=== PATIENT | male | born 1965 | race Caucasian/White ===

== ENCOUNTER 2018-05-17 09:33 | Emergency (ER) | payer OTHER ==
[~2018-05-17 09:33] MED LIST: AMBIEN10 M1 PO; OLANZAPINE20 M1 PO; ZOLPIDEM TARTRA10 M1 PO; ZYPREXA20 M1 PO
--- NOTE | 2018-05-17 09:41 | ED SKIN/ALLERGY COMPLAINT ---
History of Present Illness General Chief Complaint: Allergy Symptoms Stated Complaint: CP Source: patient Exam Limitations: no limitations Vital Signs & Intake/Output Vital Signs & Intake/Output Vital Signs Date Time Temp Pulse Resp B/P B/P Pulse O2 O2 Flow FiO2 Mean Ox Delivery Rate 05/17 1129 98.1 66 18 121/76 99 Nasal 2.0L Cannula 05/17 1025 97.1 64 18 128/70 100 Nasal 2.0L Cannula 05/17 0942 95 Room Air 05/17 0941 65 16 121/74 95 Room Air Allergies Coded Allergies: No Known Allergies (05/17/18) Reconcile Medications Hydroxyzine Hydrochloride (Atarax) 50 MG TAB 1 TAB PO BID ALLERGY Olanzapine (Zyprexa) 20 MG TABLET 1 TAB PO QPM insomnia Prednisone 10 MG TABLET 1 DOSE PO DAILY ALLERGY TAKE 5 TABS DAY 1, 4 TABS DAY 2, 3 TABS DAY 3, 2 TABS DAY 4, 1 TAB DAY 5 Zolpidem Tartrate (Ambien) 10 MG TABLET 1 TAB PO QPMP insomnia Triage Nurses Notes Reviewed? yes Onset: Gradual Duration: hour(s): Timing: single episode today Severity: moderate Location: generalized HPI: 53-year-old male presents emergency department complaining of shortness of breath following bee sting 1 hour prior to arrival. Patient also reports rash to extremities and torso gradually worsening since bee sting. Patient was stung by a bee on right arm while working outside. He has never been stung by a bee before, no history of any allergic reactions in the past, no history of anaphylaxis in the past. Patient denies chest pain, abdominal pain. (Marry Rodriguez) Past History Travel History Traveled to [place] past 21 day No Medical History Any Pertinent Medical History? 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 No (Marry Rodriguez) Review of Systems Review of Systems Constitutional: Reports: no symptoms. EENTM: Reports: no symptoms. Respiratory: Reports: see HPI. Cardiovascular: Reports: no symptoms. GI: Reports: no symptoms. Genitourinary: Reports: no symptoms. Musculoskeletal: Reports: no symptoms. Skin: Reports: see HPI. Neurological/Psychological: Reports: no symptoms. Hematologic/Endocrine: Reports: no symptoms. Immunologic/Allergic: Reports: see HPI. All Other Systems: Reviewed and Negative (Marry Rodriguez) Physical Exam Physical Exam General Appearance: well developed/nourished, no apparent distress, alert, awake Head: atraumatic, normal appearance Eyes: Bilateral: normal appearance. Ears, Nose, Throat: normal pharynx, hearing grossly normal, no angioedema Neck: normal inspection, supple, full range of motion Respiratory: normal breath sounds, no respiratory distress, lungs clear Cardiovascular: regular rate/rhythm Back: normal inspection, normal range of motion Extremities: normal inspection, normal range of motion Neurologic/Psych: awake, alert, oriented x 3 Skin: erythematous maculopapular rash to bilateral upper and lower extremities, torso (Marry Rodriguez) Progress Differential Diagnosis: abscess/cellulitis, allergic reaction, anaphylaxis, angioedema, contact dermatitis, drug reaction, urticaria Plan of Care: Orders Procedure Date/time Status TROPONIN LEVEL 05/17 939 Complete COMPREHENSIVE METABOLIC PANEL 05/17 939 Complete CBC WITHOUT DIFFERENTIAL 05/17 939 Complete EKG 05/17 933 Active Laboratory Tests 05/17/18 1022: Anion Gap 12, Estimated GFR > 60, BUN/Creatinine Ratio 21.4, Glucose 121 H, Calcium 9.2, Total Bilirubin 0.9, AST 22, ALT 27, Alkaline Phosphatase 48, Troponin I < 0.01, Total Protein 6.3, Albumin 3.8, Globulin 2.5, Albumin/ Globulin Ratio 1.5, CBC w Diff NO MAN DIFF REQ, RBC 4.57 L, MCV 91.8, MCH 31.6 H, MCHC 34.5, RDW 13.5, MPV 9.0, Gran % 65.1, Lymphocytes % 31.4, Monocytes % 2.5, Eosinophils % 0.6, Basophils % 0.4, Absolute Granulocytes 2.6, Absolute Lymphocytes 1.3, Absolute Monocytes 0.1, Absolute Eosinophils 0, Absolute Basophils 0 Patient medicated with IV Solu-Medrol, Benadryl, Pepcid. Upon reevaluation patient's rash is improving, patient states his dyspnea has resolved. The patient's labs are stable, abnormalities. patient feels ready to go home at this time. patient to begin prednisone taper and atarax. Patient in no acute distress, vital signs are stable. The patient agrees with the plan of care. Dr. Orourke agrees with the plan of care. Initial ED EKG: sinus rhythm @69bpm, nonspecific ST changes (Marry Rodriguez) Departure Departure Disposition: HOME OR SELF CARE Condition: Stable Clinical Impression Primary Impression: Allergic reaction Qualifiers: Encounter type: initial encounter Qualified Code: T78.40XA - Allergy, unspecified, initial encounter Secondary Impressions: Dyspnea Qualifiers: Dyspnea type: unspecified Qualified Code: R06.00 - Dyspnea, unspecified Rash Referrals: Miya King APRN (PCP/Family) Additional Instructions: Take medications as prescribed. Follow up with your primary care doctor. Return with worsening symptoms or concerns. Please note that there might be incidental findings in your evaluation that are unrelated to the current emergency department visit. Please notify your primary care doctor about this emergency department visit in order to obtain and review all of the testing performed so that these incidental findings can be monitored as needed. If you had an x-ray performed, please understand that some fractures may not be seen on the initial set of x-rays. If your symptoms persist you might need a repeat set of x-rays to check for such a fracture. If you had a laceration evaluated, please understand that foreign bodies such as glass or wood may not be visible to the naked eye or on plain x-rays. If the wound becomes red, swollen, increasingly more painful or if there is any drainage from the wound, please have it reevaluated by a physician for the possibility of a retained foreign body. If you're unable to follow up as outlined in the discharge instructions please return to the emergency department. Thank you for choosing the [facility] Emergency Department for your care. It was a pleasure to serve you today. Departure Forms: Customer Survey General Discharge Information Prescriptions: Current Visit Scripts Prednisone 1 DOSE PO DAILY #15 TAB TAKE 5 TABS DAY 1, 4 TABS DAY 2, 3 TABS DAY 3, 2 TABS DAY 4, 1 TAB DAY 5 Hydroxyzine Hydrochloride (Atarax) 1 TAB PO BID #15 TAB (Marry Rodriguez) PA/EMBRYOLOGY PROFESSOR Co-Sign Statement Statement: ED Attending supervision documentation- I saw and evaluated the patient. I have also reviewed all the pertinent lab results and diagnostic results. I agree with the findings and the plan of care as documented in the PA's/EMBRYOLOGY PROFESSOR's documentation. x I have reviewed the ED Record and agree with the PA's/EMBRYOLOGY PROFESSOR's documentation. [] Additions or exceptions (if any) to the PAs/EMBRYOLOGY PROFESSOR's note and plan are summarized below: [] (Haven LEVY,Ronal)
[2018-05-17 10:28] LABS: ABSOLUTE BASOPHIL COUNT 0 /CUMM (0.0-0.2); ABSOLUTE EOSINOPHIL COUNT 0 /CUMM (0.0-0.7); ABSOLUTE GRANULOCYTE CT 2.6 /CUMM (1.4-6.5); ABSOLUTE LYMPH COUNT 1.3 /CUMM (1.2-3.4); ABSOLUTE MONOCYTE COUNT 0.1 /CUMM (0.10-0.60); BASOPHIL % 0.4 % (0.0-2.0); EOSINOPHIL % 0.6 % (0-5); GRANULOCYTE % 65.1 % (42.2-75.2); MEAN CORPUSCULAR HGB 31.6 PG (27.0-31.0); MEAN CORPUSCULAR HGB CONC 34.5 G/DL (33.0-37.0); MEAN CORPUSCULAR VOLUME 91.8 FL (80.0-94.0); PLATELET COUNT 193 /CUMM (130-400); RBC DISTRIBUTION WIDTH 13.5 % (11.5-14.5); RED BLOOD CELL CT 4.57 /CUMM (4.70-6.10)
[2018-05-17] MEDS ORDERED: PREDNISONE10 M2 PO (11:12)
[2018-05-17] MEDS ORDERED: HYDROXYZINE HCL50 M1 PO (11:12)
[2018-05-17 11:29] VITALS: BP 121/76
== END 2018-05-17 11:36 ==
LOC: ERH 09:33
PROVIDERS: Physician Assistant
DX: T63.441A Toxic effect of venom of bees, accidental (unintentional), initial encounter (principal); R06.00 Dyspnea, unspecified; R21 Rash and other nonspecific skin eruption
CPT/HCPCS: 93005; 93010; 96374; 96375; J1200; J2930